=== PATIENT | male | born 1985 | race Two or more races ===

== ENCOUNTER 2020-07-16 03:54 | Emergency (ER) | payer SELFPAY ==
[~2020-07-16] VITALS: Ht 185.4 cm; Wt 79.4 kg
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
== END 2020-07-16 04:00 ==
LOC: EMR 03:57
DX: M25.532 Pain in left wrist (principal); M25.531 Pain in right wrist
CPT/HCPCS: 99281